=== PATIENT | female | born 1955 | race Caucasian/White ===

== ENCOUNTER 2018-09-26 11:24 | Day surgery (SDC) | payer BC ==
[~2018-09-26 11:24] MED LIST: Acetaminophen TAB* 325 MG PO PRN; Buffered Lidocaine 0.9% SYRIN* 5 ML/SYR SYRINGE INTRADERM ONE
[2018-09-26] MEDS ORDERED: fentaNYL* 50 MCG/ML 2 ML VIAL (100 MCG VIAL) ONE (13:37)
[2018-09-26] MEDS ORDERED: Midazolam* 1 MG/ML 2 ML VIAL (2 MG) ONE ×2 (13:37→14:03)
[2018-09-26 14:37] VITALS: BP 149/56
[2018-09-26] MEDS ORDERED: Phenylephrine 2.5% OPTH.SOL* 2 ML BTL ONE (14:41)
[2018-09-26] MEDS ORDERED: Cyclopentolate 1% OPTH.SOL* 2 ML BTL ONE (14:41)
[2018-09-26] MEDS ORDERED: Lidocaine 1%* 5 ML VIAL ONE (14:41)
[2018-09-26] MEDS ORDERED: Neomycin/Polymy/Dex OPTH.SUSP* MAXITROL 0.1% 5 ML ONE (14:41)
[2018-09-26] MEDS ORDERED: acetaZOLAMIDE TAB* 250 MG ONE (14:41)
[2018-09-26] MEDS ORDERED: Lidocaine 2% EPI 1:200000 MPF*10-20 ML VIAL ONE (14:41)
[2018-09-26] MEDS ORDERED: Ketorolac 0.5% OPHTH (NF) 0.5 % 5 ML BTL ONE (14:41)
[2018-09-26] MEDS ORDERED: Povidone Iodine 5% OPTH* 30 ML BTL ONE (14:41)
[2018-09-26] MEDS ORDERED: Proparacaine 0.5% OPHTH.SOL* 15 ML BTL ONE (14:42)
--- NOTE | 2018-09-27 01:57 | OP ---
DATE OF OPERATION: 09/26/18 [facility] DATE OF : 57 SURGEON: Link Bauman M.D. PREOPERATIVE DIAGNOSIS: Cataract right eye. POSTOPERATIVE DIAGNOSIS: Cataract right eye. OPERATIVE PROCEDURE: Extracapsular cataract extraction with intraocular lens implant right eye. DESCRIPTION OF PROCEDURE: The patient was brought to the operating room after being given 1/2% Alcaine with epinephrine drops in the preoperative area. The eye was prepped and draped in the usual sterile fashion. Sterile drape and eyelid speculum were placed. Again, topical 1/2% Alcaine with epinephrine was given. A paracentesis incision was made at the 9 o'clock position with the No.75 blade. Clear cornea incision 2.2 x 2.2-mm was created at the 12 o'clock position starting at the anterior limbus using the 2.2-mm keratome. The anterior chamber was irrigated with 0.4 mL of 1% non-preservative intracameral lidocaine and filled with DisCoVisc. A capsulorrhexis was completed using the cystotome and the Utrata forceps. Hydrodissection was performed with balanced salt solution. The lens nucleus was removed with the Phacoemulsification handpiece without incident. Cortex was removed with the irrigation-aspiration handpiece. The capsular bag was re-inflated using DisCoVisc and an SN60WF 21.5 implant was inserted with the shooter. The irrigation-aspiration handpiece was used to remove all residual DisCoVisc. The eye was refilled with balanced salt solution and the wound checked and found to be watertight. Topical Maxitrol drops were given. [id number]/[facility] #: [id number] MTDD
== END 2018-09-26 14:50 | disposition home or self-care (01) ==
LOC: OREAST 11:24
PROVIDERS: ATTEND Specialist
DX: H25.811 Combined forms of age-related cataract, right eye (principal); E11.9 Type 2 diabetes mellitus without complications; Z79.84 Long term (current) use of oral hypoglycemic drugs; Z87.891 Personal history of nicotine dependence; K21.9 Gastro-esophageal reflux disease without esophagitis; I10 Essential (primary) hypertension; E78.00 Pure hypercholesterolemia, unspecified; G47.33 Obstructive sleep apnea (adult) (pediatric); E78.5 Hyperlipidemia, unspecified
CPT/HCPCS: A9270-GY; J2250; J3010; V2632

== ENCOUNTER → 2018-10-03 12:01 | Day surgery (SDC) | payer BC ==
[~2018-10-03 12:01] MED LIST changes: +Cyclopentolate 1% OPTH.SOL* 2 ML BTL ONE; +Ketorolac 0.5% OPHTH (NF) 0.5 % 5 ML BTL ONE; +Lidocaine 1%* 5 ML VIAL ONE; +Lidocaine 2% EPI 1:200000 MPF*10-20 ML VIAL ONE; +Midazolam* 1 MG/ML 2 ML VIAL (2 MG) ONE; +Neomycin/Polymy/Dex OPTH.SUSP* MAXITROL 0.1% 5 ML ONE; +Phenylephrine 2.5% OPTH.SOL* 2 ML BTL ONE; +Povidone Iodine 5% OPTH* 30 ML BTL ONE; +Proparacaine 0.5% OPHTH.SOL* 15 ML BTL ONE; +acetaZOLAMIDE TAB* 250 MG ONE
[2018-10-03 14:45] VITALS: BP 136/59
--- NOTE | 2018-10-04 06:11 | OP ---
DATE OF OPERATION: 10/03/18 [facility] DATE OF : 57 SURGEON: Link Bauman M.D. PREOPERATIVE DIAGNOSIS: Cataract, left eye. POSTOPERATIVE DIAGNOSIS: Cataract, left eye. OPERATIVE PROCEDURE: Extracapsular cataract extraction with intraocular lens implant left eye. DESCRIPTION OF PROCEDURE: The patient was brought to the operating room after being given 1/2% Alcaine with epinephrine drops in the preoperative area. The eye was prepped and draped in the usual sterile fashion. Sterile drape and eyelid speculum were placed. Again, topical 1/2% Alcaine with epinephrine was given. A paracentesis incision was made at the 3 o'clock position with the No.75 blade. Clear cornea incision 2.2 x 2.2-mm was created at the 6 o'clock position starting at the anterior limbus using the 2.2-mm keratome. The anterior chamber was irrigated with 0.4 mL of 1% non-preservative intracameral lidocaine and filled with DisCoVisc. A capsulorrhexis was completed using the cystotome and the Utrata forceps. Hydrodissection was performed with balanced salt solution. The lens nucleus was removed with the Phacoemulsification handpiece without incident. Cortex was removed with the irrigation-aspiration handpiece. The capsular bag was re-inflated using DisCoVisc and an SN60WF 21.5 implant was inserted with the shooter. The irrigation-aspiration handpiece was used to remove all residual DisCoVisc. The eye was refilled with balanced salt solution and the wound checked and found to be watertight. Topical Maxitrol drops were given. [id number]/[facility] #: [id number] [facility]
== END | disposition home or self-care (01) ==
LOC: OREAST 12:01
PROVIDERS: ATTEND Specialist
DX: H25.812 Combined forms of age-related cataract, left eye (principal); E11.9 Type 2 diabetes mellitus without complications; Z79.84 Long term (current) use of oral hypoglycemic drugs; Z87.891 Personal history of nicotine dependence; K21.9 Gastro-esophageal reflux disease without esophagitis; G47.33 Obstructive sleep apnea (adult) (pediatric); M19.90 Unspecified osteoarthritis, unspecified site; E78.00 Pure hypercholesterolemia, unspecified; J30.2 Other seasonal allergic rhinitis; I27.20 Pulmonary hypertension, unspecified; I11.9 Hypertensive heart disease without heart failure
CPT/HCPCS: A9270-GY; J2250; V2632

== ENCOUNTER 2021-10-12 09:25 | Observation (INO) ==
[~2021-10-12 09:25] MED LIST changes: -Acetaminophen TAB* 325 MG PO PRN; -Buffered Lidocaine 0.9% SYRIN* 5 ML/SYR SYRINGE INTRADERM ONE; +Buffered Lidocaine 1% SYRIN 1 ml INTRADERM ONE; -Cyclopentolate 1% OPTH.SOL* 2 ML BTL ONE; +DiMENhydriNATE IV 50 mg/ml 1 ml VIAL IV PUSH ONE; +Famotidine IV 10 MG/ML 2 ml VIAL (20 mg) IV ONE; -Ketorolac 0.5% OPHTH (NF) 0.5 % 5 ML BTL ONE; +Lactated Ringers 1000 ml BAG 1,000 ML IV SCH; -Lidocaine 1%* 5 ML VIAL ONE; -Lidocaine 2% EPI 1:200000 MPF*10-20 ML VIAL ONE; -Midazolam* 1 MG/ML 2 ML VIAL (2 MG) ONE; -Neomycin/Polymy/Dex OPTH.SUSP* MAXITROL 0.1% 5 ML ONE; -Phenylephrine 2.5% OPTH.SOL* 2 ML BTL ONE; -Povidone Iodine 5% OPTH* 30 ML BTL ONE; -Proparacaine 0.5% OPHTH.SOL* 15 ML BTL ONE; -acetaZOLAMIDE TAB* 250 MG ONE
[2021-10-12] MEDS ORDERED: ceFAZolin 2 GM in NS PREMIX 2 GM/100 ML BAG IVPB ONE (09:39)
[2021-10-12] MEDS ORDERED: Famotidine IV 10 MG/ML 2 ml VIAL (20 mg) ONE (09:39)
[2021-10-12] MEDS ORDERED: DiMENhydriNATE IV 50 mg/ml 1 ml VIAL ONE (09:39)
[2021-10-12] MEDS ORDERED: ceFAZolin 1 GM ADVAN 1 GM ADDV.VIAL IVPB ONE (09:39)
[2021-10-12] MEDS ORDERED: diPHENhydraMINE IV 50 MG/ML 1 ml VIAL (BENADRYL) IV PRN ×2 (10:41→13:13)
[2021-10-12] MEDS ORDERED: Ondansetron 4 mg VIAL 2 MG/ML 2 ml VIAL IV PRN ×2 (10:41→13:13)
[2021-10-12] MEDS ORDERED: Naloxone 0.4 mg VIAL 0.4 mg/ml 1 ml VIAL IV PRN (10:41)
[2021-10-12] MEDS ORDERED: Ropivacaine 5 MG/ML 20 ML VIAL 0.5% (100 MG) ONE (10:46)
[2021-10-12] MEDS ORDERED: Midazolam 2 mg/2 ml VIAL 1 mg/ml 2 ml VIAL (2 mg) ONE ×2 (10:59→11:37)
[2021-10-12] MEDS ORDERED: fentaNYL 250 mcg/5 ml 50 MCG/ML 5 ml VIAL (250 MCG) ONE (10:59)
[2021-10-12] MEDS ORDERED: ROPIVACAINE 5 MG/ML 30 ML BTL (0.5%) ONE (11:01)
[2021-10-12] MEDS ORDERED: Lactulose 30 ml UDC PO PRN (13:13)
[2021-10-12] MEDS ORDERED: Morphine 2 MG/ML SYRINGE IV PRN (13:13)
[2021-10-12] MEDS ORDERED: diPHENhydraMINE 25 mg TAB PO PRN (13:13)
[2021-10-12] MEDS ORDERED: Ondansetron ODT 4 mg TAB 4 MG TAB PO PRN (13:13)
[2021-10-12] MEDS ORDERED: Magnesium Hydroxide LIQ 30 ML UDC PO PRN (13:13)
[2021-10-12] MEDS ORDERED: Albuterol/Ipratropium RESP(NF) MDI (Combivent Respimat) INH PRN (13:21)
[2021-10-12] MEDS ORDERED: Propofol 10 MG/ML 20 ML BTL ONE (13:23)
[2021-10-12] MEDS ORDERED: fentaNYL 100 mcg/2 ml 50 MCG/ML VIAL ONE (14:03)
[2021-10-12] MEDS ORDERED: HYDROmorphone 1 MG/1 ML SYRINGE ONE (14:30)
[2021-10-12] MEDS: HYDROmorphone 1 MG/1 ML SYRINGE IV PRN ×4 (14:31→14:50)
[2021-10-12] MEDS ORDERED: Morphine 4 MG/ML VIAL (1 ml) ONE (15:37)
[2021-10-12] MEDS: Lactated Ringers 1000 ml BAG 1,000 ML IV SCH (16:44)
[2021-10-12] MEDS: Clindamycin 600 MG/NS BAG(*) 600 MG/50 ML BAG IV SCH (20:15)
[2021-10-12] MEDS: Magnesium Hydroxide LIQ 30 ML UDC PO SCH (20:21)
[2021-10-13] MEDS: Lactated Ringers 1000 ml BAG 1,000 ML IV SCH (03:31)
[2021-10-13] MEDS: Clindamycin 600 MG/NS BAG(*) 600 MG/50 ML BAG IV SCH ×2 (03:33→12:09)
[2021-10-13 07:04] LABS: Hematocrit 35 % (35-47); Hemoglobin 11.8 g/dL (12.0-16.0); Platelet Count 262 10^3/uL (150-450)
[2021-10-13 07:18] LABS: Potassium 4.2 mmol/L (3.5-5.0); eGFR CKD-EPI 90.3 (>60)
[2021-10-13] MEDS: Magnesium Hydroxide LIQ 30 ML UDC PO SCH (08:34)
[2021-10-13] MEDS ORDERED: Vitamin THERAPEUTIC TAB PO SCH (09:00)
[2021-10-13 12:08] VITALS: BP 155/65
== END 2021-10-13 16:20 | disposition home or self-care (01) ==
LOC: SSU 09:25 → OR 09:25 → EDSTATUS 11:00
PROVIDERS: ADMIT Orthopaedic Surgery Adult Reconstructive Orthopaedic Surgery; ATTEND Orthopaedic Surgery Adult Reconstructive Orthopaedic Surgery